=== PATIENT | female | born 2000 | race Caucasian/White ===

== ENCOUNTER 2020-03-29 18:52 | Emergency (ER) | payer OTHER ==
[~2020-03-29] VITALS: Ht 170.2 cm; Wt 53.5 kg
[2020-03-29] MEDS ORDERED: IBUPROFEN 600600 M1 PO (20:25)
[2020-03-29] MEDS ORDERED: NORCO 5-325 TA1 EAC2 PO (20:25)
[2020-03-29] MEDS ORDERED: DOXYCYCLINE 10100 MG PO (20:25)
[2020-03-29 20:45] VITALS: BP 113/70
== END 2020-03-29 20:50 | disposition home or self-care (01) ==
LOC: M.ERS 18:52
DX: N72 Inflammatory disease of cervix uteri (principal); A59.01 Trichomonal vulvovaginitis

== ENCOUNTER 2020-09-02 11:11 | Emergency (ER) | payer OTHER ==
[~2020-09-02] VITALS: Ht 170.2 cm; Wt 52.2 kg
[~2020-09-02 11:11] MED LIST: DOXYCYCLINE 10100 MG PO; IBUPROFEN 600600 M1 PO; NORCO 5-325 TA1 EAC2 PO
[2020-09-02 11:44] LABS: URINE BILIRUBIN NEGATIVE (Negative); URINE BLOOD TRACE (Negative); URINE CLARITY CLEAR; URINE COLOR YELLOW; URINE GLUCOSE-RANDOM NEGATIVE (Negative); URINE KETONES NEGATIVE (Negative); URINE LEUKOCYTES-REFLEX 1+ (Negative); URINE NITRITE-REFLEX NEGATIVE (Negative); URINE PROTEIN NEGATIVE (Negative); URINE SPECIFIC GRAVITY 1.025 (1.005-1.030); URINE UROBILINOGEN 0.2 E.U./dl (0.2-1.0)
[2020-09-02 11:57] LABS: MUCUS 4-6 Moderate strn/LPF (None Seen); SQUAMOUS >10 Many /LPF (0-3)
[2020-09-02 11:58] LABS: BACTERIA-REFLEX 1-9 Few /HPF (None Seen); CASTS None Seen /LPF (None Seen); CRYSTALS None Seen /LPF (None Seen); URINE WBC-REFLEX 6-15 Few /HPF (0-5)
[2020-09-02 11:59] LABS: URINE RBC 0-2 Rare /HPF (0-2)
[2020-09-02] MEDS ORDERED: ACYCLOVIR 400400 MG PO (12:35)
[2020-09-02 12:44] VITALS: BP 112/82
[2020-09-05 06:06] LABS: HSV 1 DNA Positive (Negative); HSV 2 DNA Negative (Negative)
== END 2020-09-02 12:46 | disposition home or self-care (01) ==
LOC: M.ERS 11:11
PROVIDERS: Nurse Practitioner Family
DX: A59.01 Trichomonal vulvovaginitis (principal); A60.00 Herpesviral infection of urogenital system, unspecified